=== PATIENT | male | born 1985 | race Caucasian/White ===

== ENCOUNTER 2020-03-05 13:04 | Outpatient (CLI) | payer BC ==
--- NOTE | 2020-03-05 13:59 | ULT ---
US Thyroid STANDARD History: Throat pain Comparison: None. Findings: Real-time grayscale and color evaluation of the thyroid was performed. Normal echotexture a nd vascularity. No abnormal thyroid nodule. Impression: Normal thyroid ultrasound.
== END 2020-03-05 13:05 | disposition home or self-care (01) ==
LOC: BICULT 13:04
PROVIDERS: ATTEND Nurse Practitioner Family
DX: R07.0 Pain in throat (principal)
CPT/HCPCS: 76536